=== PATIENT | female | born 2000 | race Hispanic/Latino ===

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

== ENCOUNTER 2021-03-10 15:23 | Emergency (ER) | payer MEDICAID ==
[~2021-03-10] VITALS: Ht 149.9 cm; Wt 63.5 kg
[2021-03-10 15:24] VITALS: BP 120/83
== END 2021-03-10 22:00 | disposition left against medical advice (07) ==
LOC: EDH 15:23
DX: R30.9 Painful micturition, unspecified (principal); Z53.21 Procedure and treatment not carried out due to patient leaving prior to being seen by health care provider